=== PATIENT | male | born 1990 | race Caucasian/White ===

== ENCOUNTER 2020-12-08 09:30 | Outpatient (REF) | payer BC, SELFPAY ==
--- NOTE | ~2020-12-08 | FL_ITS ---
PROCEDURE: FL BARIUM SWALLOW CLINICAL INFORMATION: Dysphagia. COMPARISON: None TECHNIQUE: Barium swallow examination is performed using fluoroscopic evaluation in addition to multiple fluoroscopic spot views. The patient is imaged both upright and prone and using both thick and thin sulfate along with effervescent granules. Fluoroscopy time: 1.2 minutes DAP: 22.6 Gycm2 Images: 47 FINDINGS: Following oral administration of thick barium and barium-coated turkey there is normal propagation of bolus from the oral cavity, pharynx, esophagus into stomach without any obstruction, narrowing or extrinsic compression. On placing patient prone and oral administration of thin barium there is good distention of the entire esophagus without any intraluminal filling defect, especially there is no abnormality seen involving the distal esophagus. FL/FL barium swallow IMPRESSION: Unremarkable barium swallow exam.
[2020-12-08 10:56] LABS: Cholesterol 265 mg/dL; Glucose Fasting 92 mg/dL (60-99); HDL Cholesterol 38 mg/dL; LDL Cholesterol Calculated 183 mg/dl; Triglycerides 221 mg/dL
== END 2020-12-08 09:31 | disposition home or self-care (01) ==
LOC: HO.XRAY 09:30
PROVIDERS: PCP Family Medicine; Visit Provider Family Medicine
DX: R13.10 Dysphagia, unspecified (principal); K21.9 Gastro-esophageal reflux disease without esophagitis
CPT/HCPCS: 36415; 74220; 80061; 82947